=== PATIENT | female | born 1960 | race Caucasian/White ===

== ENCOUNTER 2016-06-17 17:18 | Emergency (ER) | payer OTHER ==
[~2016-06-17] VITALS: Ht 160 cm; Wt 56.8 kg
[~2016-06-17 17:18] MED LIST: ASCO-375 PO; CHOL200047 PO; LORA0.5T PO; ONDA8TAB7 PO; OXYC1TAB24 PO; SENN25TA8 PO
[2016-06-17 17:20] VITALS: BP 134/77; PULSE 96; RESP 20; O2SAT 98
--- NOTE | 2016-06-17 17:28 | ED.REPORT ---
HPI-Back Pain 40 and Over Date of Service Jun 17, 2016 ED Provider: Luis Maldonado MD 55 year old female with stage 4 liver cancer presents to the ER accompanied by her son complaining of bilateral throbbing flank pain onset yesterday, worsening today. Pain is exacerbated by seated position, and mildly relieved by standing. Associated symptom of vomiting which exacerbates pain, and intermittent diaphoresis . She denies dysuria, urinary frequency, urinary urgency, numbness of the lower extremities, changes in bowel or urinary habits, and fever. Previously she has experienced similar symptoms in the past that seemed to be associated with chemotherapy treatments. Patient is currently receiving regular chemotherapy treatments, most recently 5 days ago. She takes oxycodone on a PRN basis. Nursing Notes Stated Complaint: POSSIBLE UTI Chief Complaint: Back Pain or Injury Nursing Notes Reviewed: Yes (Ahandyhand not reconciled) Allergies: Coded Allergies: No Known Allergies (Verified , 04/01/16) Scheduled Ascorbic Acid/Multivit-Min (Emergen-C 1,000 mg Packet) 1,000 Mg Effpowdpkt 1, 000 MG PO DAILY Cholecalciferol (Vitamin D3) (Vitamin D3) 2,000 Unit Capsule 2,000 UNIT PO DAILY Scheduled PRN Lorazepam (Lorazepam) 0.5 Mg Tablet 0.5 MG PO TID PRN PRN For Anxiety Ondansetron ODT (Zofran ODT) 8 Mg Tablet 8 MG PO Q4H PRN PRN For Nausea Sennosides (Senna Laxative) 25 Mg Tablet 2 TAB PO BID PRN PRN For Constipation oxyCODONE-Acetaminophen 5-325 mg (oxyCODONE-Acetaminophen 5-325 mg) 1 Each Tablet 1-2 TAB PO q4 PRN PRN For Pain General Time Seen by MD: 17:26 Chief Complaint Flank pain bilateral Hx Obtained From: Patient Arrived By: Walk-in Sudden in Onset?: No Onset Occurred: Yesterday Symptom Duration: Since onset Location: : Flank bilateral Quality: Painful, Throbbing Severity: Current: Moderate Severity: Maximum: Moderate Associated with: Denies: Dysuria, Fever, Frequency, Incontinence bladder, Incontinence bowel, Numbness both low ext Related History: Reports: Cancer Recent Healthcare: Recent doctor visit Similar Sx Previous: Yes Past Medical History Past Medical History Notes: Oncologist Dr. 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 per oncology note, currently on FOLFOX therapy as of 06/17/16 Past Surgical History right thumb fracture repair D&C endocerv polyp exc removal of gastric foreign body (Darning needle) Reports: Portocath Smoking History Never Smoker, Unknown if Ever Smoker Social History Other Social History: Good social support Ambulatory Status Independent Review of Systems Constitutional: Denies: Chills, Fever Respiratory: Denies: Non-productive cough GI: Reports: Nausea, Vomiting Female: Reports: Flank pain, Denies: Dysuria, Hematuria, Incontinence, Urinary frequency, Urinary urgency , Urination decreased, Urination increased Neurologic: Denies: Bladder dysfunction, Bowel dysfunction, Numbness Complete sys rev & neg: except as marked. Skin: Reports Diaphoresis Physical Exam Initial Vital Signs Vital Signs (First) Date Time Temp Pulse Resp B/P Pulse Ox O2 Delivery O2 Flow Rate FiO2 06/17/16 17:20 37.1 96 20 134/77 98 Room Air Initial VS: Reviewed, Vital signs normal Head / Eyes: Atraumatic, Normocephalic Neck: Supple, Non-tender, Full range of motion Extremities: Vascular intact, Neuro intact, No swelling, No tenderness Skin: Warm, Dry, No cyanosis Psychiatric: Mood/affect normal, Behavior normal, Normal thought content General/Constitutional: Awake, Alert, No acute distress, Well appearing, Well developed, Well hydrated Appearance / Presentation: Positive: Cachectic Thin. Respiratory / Chest: Breath sounds NL, Breath sounds = bilat, No respiratory distress, No rales, No rhonchi, No wheezing Port-A-Cath. Cardiovascular: Heart rate NL, Regular rhythm, Heart sounds NL, No murmurs, Peripheral circulation NL Abdomen: Soft, Non-tender, No guarding, No rebound, No distention, No palpable mass, No pulsatile mass Neurologic: Oriented X3, Speech NL, No motor deficits, No sensory deficits Interpretation & Diagnostics Lab Results Interpretation Result Diagram: 06/17/16185606/17/161856 Test 06/17/16 18:12 06/17/16 18:57 Urine Color Yellow (YELLOW) Urine Appearance Clear (CLEAR,HAZY) Urine pH 6.5 (5.0-8.0) Urine Specific [place] <1.005 (1.003-1.035) Urine Protein Negativemg/dL (NEG,TRACE) Urine Glucose (UA) Negativemg/dL (NEGATIVE) Urine Ketones Negativemg/dL (NEGATIVE) Urine Occult Blood Negative (NEGATIVE) Urine Nitrite Negative (NEGATIVE) Urine Bilirubin Negative (NEGATIVE) Urine Urobilinogen Normalmg/dL (NORMAL) Urine Leukocyte Esterase Negative (NEGATIVE) Urine RBC 0-2/hpf (0-2) Urine WBC 0-5/hpf (0-5) Urine Epithelial Cells Few/hpf (NONE-MOD) Urine Crystals None seen (NONE SEEN) Urine Bacteria Few/hpf (NONE-FEW) Urine Hyaline Casts None/lpf (NONE) Urine Granular Casts None seen (NONE SEEN) Urine Waxy Casts None seen (NONE SEEN) Urine Red Blood Cell Casts None seen (NONE SEEN) Urine White Blood Cell Casts None seen (NONE SEEN) Urine Mucus None seen (None Seen) Urine Trichomonas None seen (NONE SEEN) Urine Yeast None (NONE SEEN) Urinalysis Comment None Urine Culture Reflexed Not indicated White Blood Count 13.8th/mm3 (3.8-10.1) Red Blood Count 3.09mil/mm3 (3.90-5.20) Hemoglobin 9.0g/dL (12.0-15.6) Hematocrit 26.6% (35.0-46.0) Mean Corpuscular Volume 86.1fL (81-100) Mean Corpuscular Hemoglobin 29.1pg (27.0-35.0) Mean Corpuscular Hemoglobin Concent 33.8% (32.0-37.0) Red Cell Distribution Width 21.5% (12.3-15.4) Platelet Count 137bil/L (150-400) Neutrophils (%) (Auto) 54% (40-74) Lymphocytes (%) (Auto) 24% (14-46) Monocytes (%) (Auto) 8% (4-12) Eosinophils (%) (Auto) 0% (0-5) Basophils (%) (Auto) 0% (0-3) Band Neutrophils % 14% (1-5) Prothrombin Time 11.0sec (8.1-12.5) Prothromb Time International Ratio 1.03ratio Sodium Level 137mEq/L (134-144) Potassium Level 4.0mEq/L (3.5-5.2) Chloride Level 99mEq/L (97-108) Carbon Dioxide Level 25mmol/L (18-29) Blood Urea Nitrogen 14mg/dL (6-24) Creatinine 0.82mg/dL (0.57-1.00) Estimat Glomerular Filtration Rate 104mL/min (>59) Glucose Level 106mg/dL (60-99) Calcium Level 9.1mg/dL (8.5-10.1) Total Bilirubin 0.5mg/dL (0.0-1.2) Aspartate Amino Transf (AST/SGOT) 43U/L (0-50) Alanine Aminotransferase (ALT/SGPT) 35U/L (0-32) Alkaline Phosphatase 248U/L (25-150) Total Protein 7.6g/dL (6.4-8.4) Albumin 3.6g/dL (3.4-5.0) Hold Tang Top Tube Received (Received) Lab Results Interpretation: CBC leukocytosis-no neutropenia, patient is status post 3 shots of Neupogen which explains the bandemia Anemia CMP normal UA negative CT Abd / Pelvis Interpretation IMPRESSION: Overall stable to slightly decreased size and conspicuity of diffuse hepatic metastases. Elsewhere no acute abnormality. Large cystic lesion with rim calcifications in the left abdomen however no change since 05/13/16. Dictated by: Lavell Leung M.D. on 06/17/2016 at 20:14 Approved by: Lavell Leung M.D. on 06/17/2016 at 20:19 Study type: Abdominal CT IV contrast Interpretation / Wet Read by: Interpret - Radiologist Re-Eval/Medical Decision Med Decision/Clinical Course This is a 55-year-old female with metastatic probable liver CA on chemotherapy, received chemotherapy about a week ago, developed neutropenia and required Neupogen at the beginning of the week. She has then developed a little low back /flank pain she thinks is in her kidneys and presented concerned she might have a urinary tract or kidney infection. She denies fevers, chills, sweats, dysuria , polyuria, urgency or frequency. Eyes anterior abdominal discomfort, she denies nausea or vomiting. She does take some oxycodone intermittently, but is only taking half pill of that time reports as mostly doing the job. This breath. She has no additional acute complaints. She has normal vitals, she clinically appears well. Abdomen is soft and nontender clinically without signs of acute surgical process on clinical exam He has no CVA tenderness. Her urinalysis however was normal. Given this a workup was pursued. CBC CMP were obtained, she has a leukocytosis and bandemia-but these are expected post Neupogen and demonstrate proper response. CMP is normal, CT scan abdomen and pelvis revealed no new acute pathology, and is improved in terms of tumor burden compared with the previous CT in April. Chronic cystic mass on the left side that is unchanged for years according to the radiologist. We did dangerous cause of the symptoms is not identified. Patient is reassured , she is comfortable discharge to home. Routine precautions reviewed and she is discharged in good condition with follow-up with Dr. Garcia her oncologist Source of Hx: Old records Re-Evaluation/Progress #1: Time of Eval: 18:25 Re-Evaluation/Progress Note: Discussed UA results and updated patient on the plan of care. Re-Evaluation/Progress #2: Time of Eval: 20:59 Re-Evaluation/Progress Note: Patient's is now present, at bedside. Discussed lab and radiology results and plan to discharge. Patient is amenable to the plan. Return precautions given. All other questions addressed. Re-Evaluation/Progress #3: Time of Eval: 21:30 Re-Evaluation/Progress Note: Patient called me into the room to answer questions regarding her CT results. Differential Diagnosis: Negative: Abdominal aortic aneurysm, , Aortic dissection, Appendicitis, Bowel obstruction, Cauda equina syndrome, Ectopic , Epidural abscess, Epidural hematoma, Thoracic strain Counseled Regarding: Diagnosis, Lab results, Need for follow-up, When/why to return to ED Discharge & Departure Impression: Primary Impression: Back pain Back pain location: low back pain Chronicity: acute Back pain laterality: bilateral Sciatica presence: without sciatica Qualified Code: M54.5 - Low back pain Additional Impression: Cholangiocarcinoma Disposition: Home Discharge Condition All VS Reviewed: Yes Condition: Stable Additional Instructions: 1. A dangerous cause of the flank/back pain was not identified. 2. Your urine test reveal no findings of infection 3. A dangerous cause of the pain was not identified on CT scan, and hepatic metastases appeared to be improving compared to your prior CT scan in April. 4. Your immune system has responded well to the immune stimulants he received earlier, weo-gkyt-nuh white cell count is now normal. You are not currently immunosuppressed. 5. Activities as tolerated 6. Follow up with Dr. Garcia. 7. Return if new or worsening symptoms. Referrals: Raul Colbert MD (PCP) Alisa Garcia MD Attestation Portions of this note were transcribed by Niko Hyatt. I, Dr. Maldonado, personally performed the history, physical exam and medical decision-making; I reviewed and confirmed the accuracy of the information in the transcribed note. Signed by: Kamilah Galeas, 06/17/2016 and 21:31 copies to: Raul Colbert MD; Alisa Garcia MD, Matthew F MD Jun 17, 2016 17:28 NIKO HYATT Jun 17, 2016 17:35
[2016-06-17 18:21] LABS: APPEARANCE,URINE CLEAR (CLEAR,HAZY); COLOR,URINE YELLOW (YELLOW); OCCULT BLOOD,URINE NEGATIVE (NEGATIVE); PH,URINE 6.5 (5.0-8.0); UROBILINOGEN,URINE NORMAL (NORMAL)
[2016-06-17 19:14] LABS: Mean Corpuscular Hemoglobin 29.1 pg (27.0-35.0); Mean Corpuscular Volume 86.1 fL (81-100); Platelet Count 137 bil/L (150-400)
[2016-06-17] MEDS ORDERED: 0.9% Sodium Chloride 1,000 ML IV ONE (19:20)
[2016-06-17 19:26] LABS: INR 1.03 ratio
[2016-06-17 19:37] LABS: NEUTROPHILS % (AUTO) 54 % (40-74)
[2016-06-17 19:38] LABS: BASOPHILS % (AUTO) 0 % (0-3); EOSINOPHILS % (AUTO) 0 % (0-5); MONOCYTES % (AUTO) 8 % (4-12)
--- NOTE | 2016-06-17 20:19 | DRSVH ---
PROCEDURE: CT ABDOMEN AND PELVIS WITH CONTRAST ([id number]) INDICATIONS: Flank pain, ho metastatic CA TECHNIQUE: After the administration of intravenous contrast, 5 mm thick sections acquired from the diaphragm to the symphysis. 5 mm coronal and sagittal reformats were acquired. For radiation dose reduction, the following was used: automated exposure control, adjustment of mA and/or kV according to patient jalyn hwang. COMPARISON: [facility], CT, CT ABD PELVIS W CON, 05/13/2016, 15:46. FINDINGS: Image quality: Excellent. ABDOMEN: Lung bases: Lung bases are clear. Heart size is normal. Solid organs: Numerous ill-defined hypodense presumed hepatic metastases are grossly stable to sligh tly decreased in size since the prior study dated 05/13/16. Gallbladder contracted. Biliary tree and pancreas unremarkable. Spleen is enlarged. No adrenal nodule. Kidneys grossly unremarkable. No hydron ephrosis. Peritoneum and bowel: Bowel loops demonstrate normal wall thickness and caliber. No free fluid or a ir. Large cystic lesion with rim calcifications is also grossly unchanged as the prior study. Append ix not clearly identified Nodes and vessels: No retroperitoneal or mesenteric adenopathy by size criteria. Aorta and inferior vena cava are normal in size. Miscellaneous: No ventral hernias. PELVIS: Genitourinary: Bladder wall thickness is normal. Miscellaneous: No inguinal hernias or adenopathy. Bones: No suspicious bony lesions. No vertebral body compression fractures. IMPRESSION: Overall stable to slightly decreased size and conspicuity of diffuse hepatic metastases. Elsewhere no acute abnormality. Large cystic lesion with rim calcifications in the left abdomen however no change since 05/13/16. Dictated by: Lavell Leung M.D. on 06/17/2016 at 20:14 Approved by: Lavell Leung M.D. on 06/17/2016 at 20:19
[2016-06-17 21:33] VITALS: BP 145/84; PULSE 80; RESP 16; O2SAT 100
[2016-08-16] MEDS ORDERED: OXYC-474 PO (13:52)
[2016-08-27] MEDS ORDERED: PROP1DRO OP (08:40)
[2016-08-27] MEDS ORDERED: LOTE5DRO3 OP (08:41)
[2016-10-08] MEDS ORDERED: MORP-32 PO (08:56)
[2016-10-19] MEDS ORDERED: ATEN25TA PO (11:41)
[2016-10-19] MEDS ORDERED: AMLO10TA3 PO (11:41)
== END 2016-06-17 21:34 | disposition home or self-care (01) ==
LOC: SED 17:18
DX: C22.1 Intrahepatic bile duct carcinoma (principal); M54.5 Low back pain; R11.10 Vomiting, unspecified; R61 Generalized hyperhidrosis; Z92.21 Personal history of antineoplastic chemotherapy; Z95.9 Presence of cardiac and vascular implant and graft, unspecified
CPT/HCPCS: 36415; 74177; 80053; 81000; 85025; 85610; 96360; 99285; J7030; Q9967

== ENCOUNTER 2016-08-11 12:38 | Day surgery (SDC) | payer OTHER ==
[2016-08-11] VITALS (8 sets, daily range): BP systolic 122–163; BP diastolic 78–97; PULSE 93–104; RESP 16–19; O2SAT 96–100
[~2016-08-11] VITALS: Ht 160 cm; Wt 54.4 kg
[~2016-08-11 12:38] MED LIST changes: +0.9% Sodium Chloride 1,000 ML IV SCH; +Sodium Biphos-Phos 133 mL Enema RECTAL PRN; +Sodium Chloride LOK Flush 10 mL Syringe IV PRN; +fentaNYL-PF 50 mCg/mL 2 mL Inj IVPUSH PRN
[2016-08-11] MEDS ORDERED: ASCO-294 PO (13:17)
[2016-08-11] MEDS ORDERED: DXM4T PO (13:17)
[2016-08-11] MEDS ORDERED: FOLI0.4T2 PO (13:19)
--- NOTE | 2016-08-11 14:56 | ENDO ---
[address] [address] ENDOSCOPY PROCEDURE PATIENT: TROY MCFARLAND : 1960 MR#: [id number] ADMIT: 08/11/2016 JOB ID: [id number] DATE: 08/11/2016 PREPROCEDURE DIAGNOSIS: Metastatic carcinoma to the liver with unknown primary, possible cecal mass. POSTPROCEDURE DIAGNOSIS: Metastatic carcinoma to the liver of unknown primary, chronic constipation, diffuse colopathy. PROCEDURE: Colonoscopy with biopsies. ENDOSCOPIST: Eliezer Martinez MD INDICATIONS: The patient is a 55-year-old woman who was diagnosed with a metastatic carcinoma to the liver in March of 2016. The primary site was unknown, but she had a CA 19-9 at a maximum of nearly 40,000. She was treated with chemotherapy and initially had a good response but subsequently had progression of disease in some of the masses in her liver. Her most recent CT scan of the abdomen and pelvis showed a possible cecal mass versus constipation or eccentric stool in the cecum. After discussion of risks and benefits, she agreed to proceed with colonoscopy. After further discussion with her, it became apparent that she has fairly severe chronic constipation, and uses a daily coffee enema to have bowel movements. MEDICATIONS: Versed 8 mg, fentanyl 175 mcg. FINDINGS: There was diffuse colonic edema and focal areas of inflammation, but no cecal mass was identified. The quality of the prep was fairly poor with large amounts of retained liquid stool. DESCRIPTION OF PROCEDURE: Procedural sedation was achieved. The patient was connected to hemodynamic monitoring, pulse oximetry, capnography. After digital rectal exam, the PCF-H180AL colonoscope was passed under visualization until the ileocecal valve was visualized. Her colon was fairly tortuous. There was a large amount of retained liquid stool requiring aggressive suctioning and irrigation. There were quite a few edematous colonic folds with focal inflammation, but no worrisome masses were seen. Biopsies were obtained from an edematous fold that in the right colon just adjacent to the cecum and sent for permanent pathology. The scope was then withdrawn. The decision was made not to perform retroflexion because of her known widely metastatic disease and some discomfort at the end of the procedure. The scope was withdrawn and the procedure terminated. She tolerated the entire procedure well. IMPRESSION: No evidence of cecal mass. I think she has chronic constipation affect, accounting for eccentric stool seen on recent CT of the abdomen and pelvis.
--- NOTE | 2016-08-13 15:30 | PATH ---
SURGICAL PATHOLOGY Attending Physician:Jermain Wong CASE STATUS: Signed Out PATIENT NAME: TROY MCFARLAND PID: [id number] : 1960 DATE COLLECTED:08/11/2016 00:00 SPECIMEN: Colon, Biopsy CLINICAL HISTORY: 1). RIGHT COLON BIOPSY FINAL DIAGNOSIS: Right Colon, Biopsy: Colonic mucosa with no significant diagnostic abnormality. Negative for active, chronic and microscopic colitis. Negative for dysplasia and malignancy. ICD10 R10.9 GROSS DESCRIPTION: The specimen is received in one formalin filled container labeled with the patient's name, sublabeled "right colon" and consists of a 0.2 x 0.2 x 0.2 CM portion of tissue which is entirely submitted in one cassette. 08/12/2016 [facility] ICD-9 CODES: CPT CODES: 1: 30331 Electronically Signed Out Saima Bailey MD [facility] Pathology [facility] [address], [place] [address] Technical component performed at [facility], [facility] [address], [place], [address]
[2016-08-16] MEDS ORDERED: OXYC-474 PO (13:52)
[2016-08-27] MEDS ORDERED: PROP1DRO OP (08:40)
[2016-08-27] MEDS ORDERED: LOTE5DRO3 OP (08:41)
[2016-10-08] MEDS ORDERED: MORP-32 PO (08:56)
[2016-10-19] MEDS ORDERED: ATEN25TA PO (11:41)
[2016-10-19] MEDS ORDERED: AMLO10TA3 PO (11:41)
== END 2016-08-11 23:59 | disposition home or self-care (01) ==
LOC: END 12:38
PROVIDERS: ATTEND Student in an Organized Health Care Education/Training Program
DX: C78.7 Secondary malignant neoplasm of liver and intrahepatic bile duct (principal); K59.00 Constipation, unspecified; C80.1 Malignant (primary) neoplasm, unspecified; Z92.21 Personal history of antineoplastic chemotherapy
CPT/HCPCS: 45380; 99153; G0500; J2250; J3010; J7030